=== PATIENT | male | born 1995 | race Two or more races ===

== ENCOUNTER → 2019-01-16 | Outpatient (CLI) | payer OTHER ==
--- NOTE | 2019-01-17 12:26 | RAD ---
EXAM: 3 views right ankle DATE: 01/16/2019 12:00 AM INDICATION: Right ankle pain COMPARISON: No Prior FINDINGS/ IMPRESSION: 1. Overlying splint obscures fine bony detail. 2. Focal lucency medial talar dome may represent osteochondral injury. 3. No evidence of acute fracture or dislocation. Electronically signed by: Jorge Capone MD (01/17/2019 12:22 PM) [facility]
== END | disposition home or self-care (01) ==
LOC: RAD 22:06
PROVIDERS: ATTEND Family Medicine
DX: S99.811A Other specified injuries of right ankle, initial encounter (principal); X58.XXXA Exposure to other specified factors, initial encounter; Y93.89 Activity, other specified; Y92.89 Other specified places as the place of occurrence of the external cause; Y99.8 Other external cause status
CPT/HCPCS: 73610